=== PATIENT | female | born 1955 | race Caucasian/White ===

== ENCOUNTER → 2022-12-19 09:53 | Outpatient (BNVA) | payer MEDICARE, MEDICAID, SELFPAY | PROVIDERS: Visit Provider Physician Assistant | DX: M54.41 Lumbago with sciatica, right side (principal) | CPT/HCPCS: 99212 ==

== ENCOUNTER 2023-03-10 14:37 | Outpatient (AMB) | payer MEDICARE, SELFPAY ==
--- NOTE | 2023-03-10 14:52 | A.SPINEOV_ITS ---
Intake Intake Visit Reasons: MRI f/u Intake Note: Ms. Velásquez is here today to f/u MRI done @ [facility]. Chief Radiologic Technologist Required: No Assessment & Plan Assessment & Plan (1) Back pain of lumbar region with sciatica: Code(s): M54.40 - Lumbago with sciatica, unspecified side Plan Gilberto is a 67-year-old female who comes in with a chief complaint of continued low back pain in the setting of prior lumbar surgery in October of this year. She reports that she went to physical therapy for several weeks with improvement in symptoms. Unfortunately after a few weeks of physical therapy her pain began to worsen. She stopped attending physical therapy and reports minor improvement back to baseline for her symptoms. She states that today she has continued radicular pain bilaterally in a sciatic distribution stopping midway down her thigh. Her pain no longer radiates down to her feet. She got a new MRI due to continuing symptoms that she feels got worse after PT. Physical exam: The patient ambulates well. She has 5/5 strength in her upper and lower extremities. Her reflexes are intact. Her sensation is grossly intact. (-) Babinski. (-) Straight leg raise. Imaging review: MRI from 02/05 shows L4-L5 spondylolithesis with radiolucent epiphyseal borders, indicative of osteopenia / osteoporosis. Impression: The patient is a 67-year-old female with continued low back pain status post L4-5 lumbar decompression in October of this year. She reports initial improvement of symptoms with PT, then states that she feels she over- worked her injury and began having pain from PT. MRI was reviewed with Dr. Saenz, who suggested L4-5 L5-S1 fusion. We would like bone scans be obtained from her primary care provider. We would also like a CT scan for further evaluation of bone quality prior to recommending surgical intervention. After her scans are sent over and CT scan is completed we can review them in the office. The total time spent with this visit with this patient was 45 minutes reviewing history, physical exam, MRI imaging review, and implementation of treatment plan or further diagnostic testing Zane Saenz MD,PhD [facility] Coding Level of Care Code Est Pt Level 5 ([id number]) Diagnoses Back pain of lumbar region with sciatica M54.40
== END 2023-03-10 16:01 | disposition home or self-care (01) ==
PROVIDERS: PCP Physician Assistant; Visit Provider Neurological Surgery
DX: M54.40 Lumbago with sciatica, unspecified side (principal)
CPT/HCPCS: 99215

== ENCOUNTER → 2023-03-10 14:37 | Outpatient (BNVA) | payer MEDICARE, SELFPAY | PROVIDERS: Visit Provider Neurological Surgery | DX: M54.40 Lumbago with sciatica, unspecified side (principal) | CPT/HCPCS: 99212 ==

== ENCOUNTER 2023-03-26 13:09 | Outpatient (REF) | payer MEDICARE, SELFPAY ==
--- NOTE | ~2023-03-26 | CT_ITS ---
EXAMINATION: CT LUMBAR SPINE WITHOUT CONTRAST CLINICAL INFORMATION: Lumbago with sciatica, unspecified side COMPARISON: None TECHNIQUE: A multidetector CT acquisition of the lumbar spine is obtained without contrast. This CT examination was performed using dose optimization techniques as appropriate, variously including the following: *Automated exposure control *Adjustment of mA and/or kV according to patient size (this includes techniques or standardized protocols for targeted exams where dose is matched to indication/reason for exam; i.e. extremities or head) *Use of iterative reconstruction technique DLP: 636 mGy-cm FINDINGS: Normal lumbar lordosis is preserved. Trace retrolisthesis of L1 on L2 and L3 on L4 and grade 2 anterolisthesis of L5 on S1 measuring 1.1 cm.. Vertebral body heights are maintained. There is no suspicious osseous lesion. Degenerative disc space narrowing at L5-S1 with vacuum disc phenomenon and exuberant endplate sclerosis.. Please note canal patency is not well assessed on this examination due to inherent limitations of CT without intrathecal contrast. Within these limitations, multilevel degenerative changes with level by level detail are as follows: L1-L2: No spinal canal or neural foraminal stenosis. Trace retrolisthesis and mild facet arthropathy. L2-L3: No spinal canal or neural foraminal stenosis. L3-L4: Trace retrolisthesis. Shallow disc bulge. Prominent dorsal epidural fat. Suggestion of mild central spinal canal stenosis and bilateral subarticular zone narrowing. No significant neural foraminal narrowing. L4-L5: Moderate facet arthropathy with widening of the facet joints, likely reflecting joint effusions. Ligamentum flavum thickening. Broad-based disc bulge. Suggestion of moderate central spinal canal stenosis from right greater than left subarticular zone narrowing. Moderate bilateral neural foraminal narrowing, right greater than left. L5-S1: Anterolisthesis with posterior disc uncovering. Moderate facet arthropathy. Suggestion of severe spinal canal stenosis and severe bilateral neural foraminal narrowing with impingement of the exiting L5 nerve roots. No significant abnormalities of the paraspinal musculature. 2 nonobstructing calculi in the upper and lower pole the right kidney, largest measuring up to 3 mm. Hepatic steatosis. The abdominal aorta is of normal contour and caliber. Moderate aortoiliac atherosclerotic calcification. CT/CT lumbar spine wo IV con IMPRESSION: 1. Grade 2 anterolisthesis of L5 on S1 secondary to advanced facet arthropathy with resultant severe spinal canal stenosis and severe bilateral neural foraminal narrowing with impingement of the exiting L5 nerve roots. 2. At L4-L5, there is suggestion of moderate central spinal canal stenosis and moderate bilateral neural foraminal narrowing, right greater than left. Moderate facet arthropathy with widening of the facet joints likely reflecting joint effusions. 3. Nonobstructing right nephrolithiasis. 4. Hepatic steatosis.
== END 2023-03-26 13:10 | disposition home or self-care (01) ==
LOC: HO.CT 13:09
PROVIDERS: PCP Physician Assistant; Visit Provider Physician Assistant
DX: M54.40 Lumbago with sciatica, unspecified side (principal)
CPT/HCPCS: 72131

== ENCOUNTER → 2023-05-01 15:15 | Outpatient (BNVA) | payer MEDICARE, SELFPAY | PROVIDERS: PCP Physician Assistant; Visit Provider Physician Assistant | DX: M54.40 Lumbago with sciatica, unspecified side (principal) | CPT/HCPCS: 99212 ==